=== PATIENT | female | born 1995 | race Asian ===

== ENCOUNTER 2018-06-09 22:36 | Emergency (ER) | payer OTHER ==
--- NOTE | 2018-06-09 22:59 | ED ---
Headache - HPI Summary HPI Summary: A 22 y/o F presents to ED with c/o ongoing BOOTHE onset this AM. Patient states she was in the shower, slipped and fell out of the tub/shower, landing on the bathroom floor. She does not remember hitting her head on anything and denies LOC. Associated sx: mild dizziness ongoing throughout the day, intermittent episodes of mild nausea, mild blurred vision described as cloudy. She denies difficulty ambulating. Pt felt healthy prior to fall. Pt [place] work [place] and says her co-worker commented on her speech that the pt was saying the wrong words. No daily medications. PMHx: asthma. - History Of Current Complaint Chief Complaint: EDHeadInjury Stated Complaint: HEAD INJURY Time Seen by Provider: 06/09/18 22:55 Hx Obtained From: Patient Onset/Duration: Sudden Onset, Started hours ago, Still Present Initially Headache Was: Moderate Currently Pain Is: Moderate Timing: Constant, Hours Associated Signs And Symptoms: Dizziness, Nausea, Visual Changes - Allergies/Home Medications Allergies/Adverse Reactions: Allergies Allergy/AdvReac Type Severity Reaction Status Date / Time No Known Allergies Allergy Verified 06/09/18 22:50 PMH/Surg Hx/FS Hx/Imm Hx Previously Healthy: Yes Cardiovascular History: Denies: Hx Congestive Heart Failure Respiratory History: Reports: Hx Asthma Sensory History: Denies: Hx Deafness Opthamlomology History: Denies: Hx Legally Blind - Immunization History Date of Tetanus Vaccine: utd Date of Influenza Vaccine: none Infectious Disease History: No Infectious Disease History: Denies: Traveled Outside the [place] in Last 30 Days - Family History Known Family History: Negative: Cardiac Disease, Hypertension, Diabetes - Social History Occupation: Student Lives: Dormitory/Roommates Alcohol Use: Weekly Hx Substance Use: Yes Substance Use Type: Reports: Marijuana Substance Use Comment - Amount & Last Used: not recently Hx Tobacco Use: No Smoking Status (MU): Never Smoked Tobacco Review of Systems Positive: Blurred Vision - mild Positive: Nausea Neurological: Other - pos: mild dizziness, speaking wrong words Positive: Headache All Other Systems Reviewed And Are Negative: Yes Physical Exam - Summary Physical Exam Summary: Appearance: Well-appearing, Well-nourished, lying in bed comfortably Skin: Warm, dry, no obvious rash Eyes: sclera anicteric, no conjunctival pallor ENT: mucous membranes moist, pharynx appears normal Neck: Supple, nontender Respiratory: Clear to auscultation, no signs of respiratory distress Cardiovascular: Normal S1, S2. No murmurs. Normal distal pulses in tibial and radial bilaterally. Abdomen: Soft, nontender, normal active bowel sounds present Musculoskeletal: Normal, Strength/ROM Intact, Motor function in all 4 extremities is normal and symmetric. There is no rigidity or tremor noted. Neurological: A&Ox3, awake and alert, mentation is normal, speech is fluent and appropriate, Level of consciousness nml. The patient is alert and oriented. Cranial nerves are grossly intact. Gaze is conjugate and without nystagmus. Peripheral vision is intact to confrontation. There are no gross sensory abnormalities to light touch. There is no truncal or fine motor ataxia. Gait is normal. Psychiatric: affect is normal, does not appear anxious or depressed Triage Information Reviewed: Yes Vital Signs On Initial Exam: Initial Vitals Temp Pulse Resp BP Pulse Ox 98.4 F 85 16 143/94 97 06/09/18 22:38 06/09/18 22:38 06/09/18 22:38 06/09/18 22:38 06/09/18 22:38 Vital Signs Reviewed: Yes Diagnostics - Vital Signs Vital Signs Temp Pulse Resp BP Pulse Ox 06/09/18 22:38 98.4 F 85 16 143/94 97 - Laboratory Lab Statement: Any lab studies that have been ordered have been reviewed, and results considered in the medical decision making process. Headache Course/Dx - Course Course Of Treatment: Pt is a 22 y/o F presenting with ongoing BOOTHE s/p slip and fall in bathroom shower. She denies hitting her head and LOC. Associated sx: mild dizziness ongoing throughout the day, intermittent episodes of mild nausea , mild blurred vision described as cloudy. She denies difficulty ambulating. Pt felt healthy prior to fall. Pt went to work tonight and says her co-worker commented on her speech that the pt was saying the wrong words. PE shows pt is neurologically intact. Pt given education materials on Concussion and will f/u with [facility]. - Diagnoses Provider Diagnoses: Concussion Discharge - Sign-Out/Discharge Documenting (check all that apply): Patient Departure - DC - Discharge Plan Condition: Good Disposition: HOME Patient Education Materials: Concussion (ED) Referrals: [facility] [Outside] - 1 Week (if not improving) - Billing Disposition and Condition Condition: GOOD Disposition: Home - Attestation Statements Document Initiated by Marissaibvinay: Yes Documenting Scribe: Jd Rodríguez Provider For Whom Heather is Documenting (Include Credential): Dr. Cristóbal Mackenzie MD Scribe Attestation: Jd Edwards, scribed for Dr. Cristóbal Mackenzie MD on 06/10/18 at 0503. Scribe Documentation Reviewed: Yes Provider Attestation: The documentation as recorded by the Jd neumann accurately reflects the service I personally performed and the decisions made by me, Dr. Cristóbal Mackenzie MD
[2018-06-09 23:22] VITALS: BP 143/84
== END 2018-06-09 23:21 | disposition home or self-care (01) ==
LOC: ED 22:36
DX: S06.0X9A Concussion with loss of consciousness of unspecified duration, initial encounter (principal); R51 Headache; R42 Dizziness and giddiness; R11.0 Nausea; H53.8 Other visual disturbances; W18.2XXA Fall in (into) shower or empty bathtub, initial encounter; Y92.9 Unspecified place or not applicable
CPT/HCPCS: 99281